=== PATIENT | male | born 1975 | race Caucasian/White ===

== ENCOUNTER → 2019-02-22 15:54 | Outpatient (CLI) | payer OTHER, SELFPAY ==
--- NOTE | 2019-02-22 | DI.MRI.S_ITS ---
PROCEDURE: MR ELBOW LT W CON INDICATIONS: PAIN IN LEFT ELBOW TECHNIQUE: Noncontrast coronal proton density fast spin echo and T2 fast spin echo with fat saturation, axial and sagittal T1 spin echo and T2 fast spin echo with fat saturation through the elbow. COMPARISON: None. FINDINGS: Image quality: Diagnostic. Lateral structures: The lateral ulnar collateral ligament and radial collateral ligament both appear intact. The overlying common extensor tendon also appears normal. Medial structures: The ulnar collateral ligament appears intact. The overlying common flexor tendon appears normal. Mild thickening and increased signal is evident involving the ulnar nerve through the region of the cubital tunnel. Anterior structures: The biceps and brachialis tendons both appear intact as they insert onto the proximal radius and ulna, respectively. No bicipitoradial bursal fluid. The median and radial neurovascular bundles appear normal; no focal muscle atrophy to suggest nerve impingement. Posterior structures: The conjoint triceps tendon from the long and lateral heads appears intact. The medial head of the triceps tendon also appears normal, with direct muscle insertion onto the olecranon. No olecranon bursal fluid. Bones: No acute fracture, dislocation, or suspicious osseous lesion is evident. No osteochondral injuries are identified. No significant degenerative changes of the elbow joint are present. There is no significant elbow joint effusion. IMPRESSION: 1. No convincing evidence of internal derangement of the elbow. 2. Nonspecific prominence of the ulnar nerve through the cubital femoral. Please correlate clinically to exclude cubital syndrome. Dictated by: Devin Moraes M.D. on 02/22/2019 at 16:11 Approved by: Devin Moraes M.D. on 02/22/2019 at 16:15
== END ==
PROVIDERS: Visit Provider Anesthesiology Pain Medicine
DX: M25.522 Pain in left elbow (principal)
CPT/HCPCS: 73221

== ENCOUNTER → 2022-08-27 10:08 | Outpatient (CLI) | payer OTHER, SELFPAY ==
[2022-08-27 11:03] LABS: COVID19 -Nasal RAPID Negative (Negative)
--- NOTE | 2022-08-27 12:48 | DI.RAD.S_ITS ---
PROCEDURE: XR CHEST 2V INDICATIONS: Shoulder pain TECHNIQUE: 2 views of the chest were acquired. COMPARISON: [facility], CR, XR SHOULDER RT MIN 2V, 08/27/2022, 13:12. FINDINGS: Surgical changes and devices: None. Lungs and pleura: Lungs are clear. No pleural effusions or pneumothorax. Mediastinum: Mediastinal contours are normal. Heart size is normal. Bones and chest wall: No suspicious bony abnormalities. Soft tissues appear unremarkable. IMPRESSION: No acute cardiopulmonary disease. Dictated by: Tae Jackson RR Interpreted: Rocco Young MD on 08/27/2022 at 13:47 Transcribed by: LUDA on 08/27/2022 at 13:47 Approved by: Rocco Young M.D. on 08/27/2022 at 17:09
--- NOTE | 2022-08-27 12:49 | DI.RAD.S_ITS ---
PROCEDURE: XR SHOULDER RT MIN 2V INDICATIONS: unknown TECHNIQUE: 3 views of the shoulder were acquired. COMPARISON: [facility], CR, XR CHEST 2V, 08/27/2022, 13:12. FINDINGS: Bones: No fractures or dislocations. No suspicious bony lesions. Visualized ribs appear intact. Minimal narrowing of the acromioclavicular joint. Soft tissues: No suspicious soft tissue calcifications. IMPRESSION: Mild acromioclavicular joint degeneration. Dictated by: Tae Jackson [facility] Interpreted: Rocco Young MD on 08/27/2022 at 13:48 Transcribed by: LUDA on 08/27/2022 at 13:48 Approved by: Rocco Young M.D. on 08/27/2022 at 17:09
[2022-08-27 13:23] LABS: Add Manual Diff / Slide Review NO; Basophils Absolute Auto 100 /uL (0-100); Eosinophils Absolute Auto 200 /uL (0-450); Eosinophils Percent Auto 2.4 % (2-4); Hematocrit 49.4 % (41-53); Hemoglobin 17.2 g/dL (13.5-17.5); Lymphocytes Absolute Auto 1900 /uL (1100-4500); Lymphocytes Percent Auto 24.4 % (25-40); Mean Corpuscular HGB Conc 34.7 % (30-36); Mean Corpuscular Volume 92.2 fL (80-100); Monocytes Absolute Auto 700 /uL (0-900); Monocytes Percent Auto 8.8 % (3-14); Neutrophils Absolute Auto 4900 /uL (1500-7000); Neutrophils Percent Auto 63.4 % (50-75); Platelet Count 214 X10^3/uL (150-400); Red Blood Cell Count 5.36 X10^6/uL (4.5-5.9); Red Cell Distribution Width 13.2 % (11.6-14.8); White Blood Cell Count 7.7 X10^3/uL (4.5-11.0)
--- NOTE | 2022-09-02 09:36 | PM.PFT.1 ---
Pulmonary Function Test Referral & Results Date Patient Seen: 08/27/22 Requesting provider: Darryl Vaca Results: The spirometry demonstrates an FVC of 4.82 L which is 69% of predicted. The FEV1 was measured at 3.14 L which is 57% of predicted. The FEV1/FVC ratio was 65 which is 82% of predicted. Following the administration of bronchodilator there was a 35% improvement in FEV1 and a 144% improvement in FEF 25-75%. Interpretation: This study demonstrates moderate obstructive lung disease based on reduction in FEV1. There is evidence of significant benefit following bronchodilator as above
== END ==
PROVIDERS: Referring Provider Chiropractor; Visit Provider Chiropractor
DX: J30.9 Allergic rhinitis, unspecified (principal); M13.80 Other specified arthritis, unspecified site; J68.3 Other acute and subacute respiratory conditions due to chemicals, gases, fumes and vapors; J45.998 Other asthma; E80.6 Other disorders of bilirubin metabolism; Z20.822 Contact with and (suspected) exposure to COVID-19
CPT/HCPCS: 36415; 71046; 73030; 85025; 87635; 94060; C9803